=== PATIENT | male | born 1960 | race Caucasian/White ===

== ENCOUNTER 2023-11-22 13:52 | Outpatient (OUT) | payer OTHER, SELFPAY ==
[2023-11-22 15:51] LABS: Prostate Specific Antigen Dx 4.32 ng/mL (<=4.00)
== END 2023-11-22 13:53 | disposition home or self-care (01) ==
LOC: LAB 13:58
PROVIDERS: PCP Family Medicine; Visit Provider Physician Assistant
DX: Z12.5 Encounter for screening for malignant neoplasm of prostate (principal)
CPT/HCPCS: 36415; 84153

== ENCOUNTER 2024-01-13 13:03 | Outpatient (OUT) | payer OTHER, SELFPAY ==
[2024-01-13 15:31] LABS: Prostate Specific Antigen Dx 1.53 ng/mL (<=4.00)
== END 2024-01-13 13:04 | disposition home or self-care (01) ==
LOC: LAB 13:17
PROVIDERS: PCP Family Medicine; Visit Provider Physician Assistant
DX: R97.20 Elevated prostate specific antigen [PSA] (principal)
CPT/HCPCS: 36415; 84153